=== PATIENT | male | born 1980 | race Caucasian/White ===

== ENCOUNTER 2017-01-31 06:59 | Emergency (ER) | payer OTHER ==
--- NOTE | 2017-01-31 07:37 | ED CLINICAL REPORT ---
Clinical Report - Physicians/Mid Levels [facility] [address] [place] [address] 01/31/2017 7:00 Patient: LILY BURKETT Time Seen: 07:11; initial patient contact. Arrived- By private vehicle. Historian- patient. HISTORY OF PRESENT ILLNESS Chief Complaint: DENTAL PAIN. This started yesterday and is still present. Pain described as moderate. The patient has had toothache. No swollen jaw or face, jaw pain or facial pain. Similar symptoms previously: Many times. Recent medical care: Not recently seen/assessed. REVIEW OF SYSTEMS No fever, nausea or vomiting. All systems otherwise negative, except as recorded above. PAST HISTORY Dental Caries. Dental Pain. Cancer. SURGERIES: Tumor removed from abdomen at 5yrs old. SOCIAL HISTORY Current every day smoker. No alcohol use or drug use. ADDITIONAL NOTES The nursing notes have been reviewed. PHYSICAL EXAM Vital Signs: 01/31/2017 07:04 BP: 143/85. HR: 95. RR: 20. O2 saturation: 99%. Temp: 97.8 F. Pain level now: 9/10. Have been reviewed. Hypertensive. Heart rate normal. Respiratory rate normal. Temperature normal. Oxygen saturation normal. Appearance: Alert. No acute distress. Head: Normal external inspection. ENT: Moderate, extensive dental decay with gingival tenderness and swelling (upper right second premolar). Pharynx normal. Uvula midline. Neck: No lymphadenopathy. Skin: Normal skin color. No rash. Neuro: Oriented X 3. PROGRESS AND PROCEDURES Course of Care: 07:36 01/31/17. Explained a dental block to the patient and agreed, upon returning to pt room w/ local, pt had eloped. CLINICAL IMPRESSION Moderate dental pain. Dental caries (localized). INSTRUCTIONS Follow-up: Screening today revealed the patient's blood pressure to be in the hypertensive range. The patient should follow up with a primary care provider for blood pressure management. (Electronically signed by Moncho Noriega Dr. 01/31/2017 7:38)
--- NOTE | 2017-01-31 07:37 | ED CLINICAL REPORT ---
Clinical Report - Physicians/Mid Levels [facility] [address] [place] [address] 01/31/2017 7:00 Patient: LILY BURKETT Time Seen: 07:11; initial patient contact. Arrived- By private vehicle. Historian- patient. HISTORY OF PRESENT ILLNESS Chief Complaint: DENTAL PAIN. This started yesterday and is still present. Pain described as moderate. The patient has had toothache. No swollen jaw or face, jaw pain or facial pain. Similar symptoms previously: Many times. Recent medical care: Not recently seen/assessed. REVIEW OF SYSTEMS No fever, nausea or vomiting. All systems otherwise negative, except as recorded above. PAST HISTORY Dental Caries. Dental Pain. Cancer. SURGERIES: Tumor removed from abdomen at 5yrs old. SOCIAL HISTORY Current every day smoker. No alcohol use or drug use. ADDITIONAL NOTES The nursing notes have been reviewed. PHYSICAL EXAM Vital Signs: 01/31/2017 07:04 BP: 143/85. HR: 95. RR: 20. O2 saturation: 99%. Temp: 97.8 F. Pain level now: 9/10. Have been reviewed. Hypertensive. Heart rate normal. Respiratory rate normal. Temperature normal. Oxygen saturation normal. Appearance: Alert. No acute distress. Head: Normal external inspection. ENT: Moderate, extensive dental decay with gingival tenderness and swelling (upper right second premolar). Pharynx normal. Uvula midline. Neck: No lymphadenopathy. Skin: Normal skin color. No rash. Neuro: Oriented X 3. PROGRESS AND PROCEDURES Course of Care: 07:36 01/31/17. Explained a dental block to the patient and agreed, upon returning to pt room w/ local, pt had eloped. CLINICAL IMPRESSION Moderate dental pain. Dental caries (localized). INSTRUCTIONS Follow-up: Screening today revealed the patient's blood pressure to be in the hypertensive range. The patient should follow up with a primary care provider for blood pressure management. (Electronically signed by Moncho Noriega Dr. 01/31/2017 7:38)
--- NOTE | 2017-01-31 07:37 | ED NURSING NOTES ---
Clinical Report - Nurses [facility] [address] [place] [address] 01/31/2017 7:00 Patient: LILY BURKETT TRIAGE Acuity: LEVEL 4. Chief Complaint: RIGHT UPPER TOOTHACHE and CHIPPED TOOTH. Alert. No acute distress. --07:07 Shameka Michael R.N. 07:04 01/31/17. BP: 143/85. HR: 95. RR: 20. O2 saturation: 99%. Temp: 97.8 F (oral). Pain level now: 05/10. --07:07 Shameka Michael R.N. Weight: 124.7 kg stated. Height/Length: 66 inches Per Patient. BMI: 44.4. --07:05 Shameka Michael R.N. Medications None. --07:05 Shameka Michael R.N. Medication/allergy information source: the patient. --07:07 Shameka Michael R.N. Allergies No Known Drug Allergy. --07:05 Shameka Michael R.N. History Arrived by private vehicle. Historian: patient. Unaccompanied. Onset. (1 weeks ago). He has a dental appointment scheduled (February 17). PAST MEDICAL HX: Immunizations: up-to-date. SOCIAL HX: Current every day light tobacco smoker (cigarette)- less than 1/2 a pack per day. No alcohol use or drug use. FALL RISK ASSESSMENT: Fall risk assessment completed. No fall risk identified. NUTRITIONAL RISK ASSESSMENT: The nutritional risk assessment revealed no deficiencies. FUNCTIONAL ASSESSMENT: Functional assessment: no impairments noted. LEARNING NEEDS ASSESSMENT: The learning needs assessment revealed no barriers. SKIN INTEGRITY ASSESSMENT: Skin integrity risk assessment completed. No skin integrity risk identified. --07:07 Shameka Michael R.N. PROBLEMS: Dental Caries. Dental Pain. Cancer. --07:05 Shameka Michael R.N. ADDITIONAL SURGERIES: Tumor removed from abdomen at 5yrs old. --07:05 Winterer, Shameka, R.N. Assessment GENERAL / NEURO / PSYCH: Alert. Oriented X 4. Appears in no acute distress. Rosario Coma Scale: 15- eyes open spontaneously (4); best verbal response- oriented x 4 (5); best motor response- obeys commands (6). Patient appears calm and cooperative. RESPIRATORY: Respirations not labored. GI / : Abdomen soft and nontender. SKIN: Mucous membranes are pink. Skin is warm and dry. --07:07 Shameka Michael R.N. Interventions ID band on patient. To treatment room. --07:07 Shameka Michael R.N. PHYSICAL ASSESSMENT 07:07 01/31/17. Ambulatory to room. GENERAL / NEURO / PSYCH: Alert. Oriented X 4. Appears in no acute distress. HEENT: Pharynx within normal limits. Voice within normal limits. Dental tenderness. Dental decay. Mucous membranes are pink. RESPIRATORY: Respirations not labored. SKIN: Skin is warm and dry. Normal skin turgor. --07:07 Shameka Michael R.N. NURSING PROGRESS NOTES 07:01/31/17. Two patient identifiers checked. Call light placed in reach. Side rails up x 1. Bed placed in lowest position. Brakes of bed on. Patient ready for evaluation- chart flagged and ED physician notified. --07:07 Shameka Michael R.N. DISPOSITION / DISCHARGE Departure time: 07:30 Jan 31 2017. The patient left the Emergency Department without completion of treatment. The patient appears to be alert, oriented x4, coherent and in no acute distress. Unable to locate patient. The patient did not notify the ED staff prior to leaving the department. Notified the ED physician of patient departure. The patient left the Emergency Department ambulatory. The patient eloped. --10:47 Shameka Michael R.N. Locked/Released at 01/31/2017 10:47 by Shameka Michael R.N.
--- NOTE | 2017-01-31 10:48 | ED MED RECONCILIATION SUMMARY ---
Patient: LILY BURKETT Medication Reconciliation Report [facility] VisitID: [id number] [address] [place] [address] 36y, M Registration Date/Time: 01/31/2017 Weight: 124.7 kg Height/Length: 66 in. BMI: 44.4 ALLERGIES: No Known Drug Allergy The patient's Home Medications are listed below: NONE. The source(s) of the original Home Medication information: patient The following Medications were given to the patient in the Emergency Department: None. The following Medications were prescribed to the patient: None.
--- NOTE | 2017-01-31 10:48 | ED DISCHARGE INSTRUCTIONS ---
Patient: LILY BURKETT General Instructions [facility] VisitID: [id number] [place] [address] 36y, M Registration Date/Time: 01/31/2017 Moderate dental pain. Dental caries (localized). INSTRUCTIONS Follow-up: Screening today revealed the patient's blood pressure to be in the hypertensive range. The patient should follow up with a primary care provider for blood pressure management. ADDITIONAL INFORMATION Dental Pain A crack or cavity in the tooth, which exposes the sensitive inner area of the tooth can cause tooth pain. An infection in the gum or the root of the tooth can cause pain and swelling. The pain is often made worse by drinking hot or cold fluids, or biting on hard foods. Pain may spread from the tooth to the ear or jaw on the same side. Home Care: Avoid hot and cold foods and liquids since your tooth may be sensitive to temperature changes. If your tooth is chipped or cracked, or if there is a large open cavity, apply OIL OF CLOVES (available fdkd-mpq-kiqztaj in drug stores) directly to the tooth to reduce pain. Some pharmacies carry an ybpm-xkm-uvedlws "toothache kit." This contains a paste, which can be applied over the exposed tooth to decrease sensitivity. A cold pack on your jaw over the sore area may help reduce pain. You may use acetaminophen (Tylenol) or ibuprofen (Motrin, Advil) to control pain, unless another medicine was prescribed. [ NOTE: If you have chronic liver or kidney disease or ever had a stomach ulcer or GI bleeding, talk with your doctor before using these medicines.] If you have signs of an infection, an antibiotic will be given. Take it as directed. Follow-Up as directed with a dentist. Your pain may go away with the treatment given. However, only a dentist can fully evaluate and treat the cause and prevent the pain from coming back again. TOOTHACHE IS A SIGN OF DISEASE IN YOUR TOOTH AND SHOULD BE EXAMINED AND TREATED BY A DENTIST. Get Prompt Medical Attention if any of the following occur: Your face becomes swollen or red Pain worsens or spreads to the neck Fever over 100.4 F (38.0 C) Unusual drowsiness; headache or stiff neck; weakness or fainting Pus drains from the tooth Difficulty swallowing or breathing You have been given the following additional information: Dental Pain (Electronically signed by Moncho Noriega Dr. 01/31/2017 7:38)
--- NOTE | 2017-01-31 10:48 | ED MAR SUMMARY ---
..... Medication Administration Record [facility] [address] [place], [place] [id number] Patient: LILY BURKETT Visit ID: [id number] 36y, M Weight: 124.7 kg Height/Length: 66 in BMI: 44.4 ALLERGIES: No Known Drug Allergy
--- NOTE | 2017-01-31 10:48 | ED MAR SUMMARY ---
..... Medication Administration Record [facility] [address] [place], [place] [id number] Patient: LILY BURKETT Visit ID: [id number] 36y, M Weight: 124.7 kg Height/Length: 66 in BMI: 44.4 ALLERGIES: No Known Drug Allergy
--- NOTE | 2017-01-31 10:48 | ED MED RECONCILIATION SUMMARY ---
Patient: LILY BURKETT Medication Reconciliation Report [facility] VisitID: [id number] [address] [place] [address] 36y, M Registration Date/Time: 01/31/2017 Weight: 124.7 kg Height/Length: 66 in. BMI: 44.4 ALLERGIES: No Known Drug Allergy The patient's Home Medications are listed below: NONE. The source(s) of the original Home Medication information: patient The following Medications were given to the patient in the Emergency Department: None. The following Medications were prescribed to the patient: None.
--- NOTE | 2017-01-31 10:48 | ED DISCHARGE INSTRUCTIONS ---
Patient: LILY BURKETT General Instructions [facility] VisitID: [id number] [place] [address] 36y, M Registration Date/Time: 01/31/2017 Moderate dental pain. Dental caries (localized). INSTRUCTIONS Follow-up: Screening today revealed the patient's blood pressure to be in the hypertensive range. The patient should follow up with a primary care provider for blood pressure management. ADDITIONAL INFORMATION Dental Pain A crack or cavity in the tooth, which exposes the sensitive inner area of the tooth can cause tooth pain. An infection in the gum or the root of the tooth can cause pain and swelling. The pain is often made worse by drinking hot or cold fluids, or biting on hard foods. Pain may spread from the tooth to the ear or jaw on the same side. Home Care: Avoid hot and cold foods and liquids since your tooth may be sensitive to temperature changes. If your tooth is chipped or cracked, or if there is a large open cavity, apply OIL OF CLOVES (available lnjo-zia-yucywep in drug stores) directly to the tooth to reduce pain. Some pharmacies carry an njuw-icj-evpfunt "toothache kit." This contains a paste, which can be applied over the exposed tooth to decrease sensitivity. A cold pack on your jaw over the sore area may help reduce pain. You may use acetaminophen (Tylenol) or ibuprofen (Motrin, Advil) to control pain, unless another medicine was prescribed. [ NOTE: If you have chronic liver or kidney disease or ever had a stomach ulcer or GI bleeding, talk with your doctor before using these medicines.] If you have signs of an infection, an antibiotic will be given. Take it as directed. Follow-Up as directed with a dentist. Your pain may go away with the treatment given. However, only a dentist can fully evaluate and treat the cause and prevent the pain from coming back again. TOOTHACHE IS A SIGN OF DISEASE IN YOUR TOOTH AND SHOULD BE EXAMINED AND TREATED BY A DENTIST. Get Prompt Medical Attention if any of the following occur: Your face becomes swollen or red Pain worsens or spreads to the neck Fever over 100.4 F (38.0 C) Unusual drowsiness; headache or stiff neck; weakness or fainting Pus drains from the tooth Difficulty swallowing or breathing You have been given the following additional information: Dental Pain (Electronically signed by Moncho Noriega Dr. 01/31/2017 7:38)
== END 2017-01-31 07:30 | disposition left against medical advice (07) ==
LOC: ED SRH 06:59
DX: K08.89 Other specified disorders of teeth and supporting structures (principal); K02.9 Dental caries, unspecified